=== PATIENT | female | born 1965 | race Caucasian/White ===

== ENCOUNTER → 2017-01-06 | Outpatient (CLI) | payer BC ==
[~2017-01-06] MED LIST: CLARITIN 1010 MG/TAB PO; FLOMAX 0.40.4 MG/CAP PO; MULTIPLE VITAMI1 CAP PO; NORCO 325 MG-51 TAB PO; PYRIDIUM200 M1 PO; ZANTAC 150MG T150 MG PO
== END ==
LOC: MC.RAD 08:56
DX: Z12.31 Encounter for screening mammogram for malignant neoplasm of breast (principal)

== ENCOUNTER → 2018-05-30 | Outpatient (CLI) | payer BC | LOC: MC.RAD 08:38 | DX: Z12.31 Encounter for screening mammogram for malignant neoplasm of breast (principal) ==

== ENCOUNTER → 2018-08-22 | Outpatient (CLI) | payer BC | LOC: COL.RAD 13:27 | DX: N83.202 Unspecified ovarian cyst, left side (principal) ==

== ENCOUNTER → 2019-12-31 | Outpatient (CLI) | payer BC | LOC: MC.RAD 10-22 15:00 | DX: Z12.31 Encounter for screening mammogram for malignant neoplasm of breast (principal) ==

== ENCOUNTER 2020-08-19 08:55 | Day surgery (SDC) | payer BC ==
[2020-08-19] VITALS (10 sets, daily range): BP systolic 95–118; BP diastolic 57–78; PULSE 64–83; TEMP 97.6–98.2
[~2020-08-19] VITALS: Ht 172.7 cm; Wt 84.7 kg
[~2020-08-19 08:55] MED LIST changes: -MULTIPLE VITAMI1 CAP PO; +MULTIPLE VITAMI1 TA5 PO
[2020-08-19] MEDS ORDERED: HCTZ 25MG TAB25 MG PO (09:19)
[2020-08-19] MEDS ORDERED: OMEGA-3 1000 MG1 CAP PO (09:19)
[2020-08-19] MEDS ORDERED: PEPCID AC 10MG10 MG PO (09:21)
[2020-08-19] MEDS ORDERED: COLACE 100100 MG/CAP PO (10:23)
[2020-08-19] MEDS ORDERED: NORCO 325 MG-51 TAB PO (10:24)
--- NOTE | 2020-08-19 12:54 | NUR ---
Patient to room via bed from PACU. Alert and oriented x4. Denies pain at this time, says that she can tell something was done but it is not painful. Does not feel like eating at this time, would prefer to take a nap after she contacts family. Will provide ice water. Oriented to room.
--- NOTE | 2020-08-19 16:38 | NUR ---
Patient sitting up in bed watching TV. Minimal pain at this time. Sellers with clear yellow urine noted in bag. Patient denies needs at this time.
--- NOTE | 2020-08-19 18:17 | NUR ---
Patient sitting up in bed watching TV and eating dinner. Patient says that she is happy since she was able to get food in her stomach. Patient denies needs at this time.
--- NOTE | 2020-08-19 19:26 | NUR ---
RECEIVED CHANGE OF SHIFT REPORT FROM DAY SHIFT NURSE.
[2020-08-20 03:34] VITALS: BP 99/51; PULSE 58; TEMP 98.3
--- NOTE | 2020-08-20 06:55 | NUR ---
Patient lying in bed watching TV. Minimal pain at this time. Low abd incision with edges well approximated, no redness/swelling/discharge noted. Patient denies need to urinate at this time. Explain that each time after she urinates we will need to scan her bladder to make sure that it is emptying appropriately. Patient denies needs at this time.
--- NOTE | 2020-08-20 07:07 | NUR ---
Change of shift report given to day shift nurseLynda.
[2020-08-20 07:54] VITALS: BP 109/59; PULSE 81; TEMP 98.1
--- NOTE | 2020-08-20 08:22 | NUR ---
Patient up to bathroom. Able to void approx 400mL clear yellow urine. Post void residual scan with approx 36mL in bladder. Patient says that she feels good at this time. Review that discharge instructions have been placed and that hopefully we can get her out of the hospital by this afternoon as we will need to do a few of the post void residual scans. Patient verbalizes understanding. Denies needs at this time.
--- NOTE | 2020-08-20 09:54 | NUR ---
Patient up to bathroom. Voids 450mL. Bladder scan performed and approx 40mL noted. Patient says that she feels like she is able to empty her bladder. Will continue to drink water and will call after next void.
--- NOTE | 2020-08-20 10:45 | NUR ---
Initial visit; Patient thanked [employer] for looking in on her, visiting and offering prayer and God's blessings.
--- NOTE | 2020-08-20 12:12 | NUR ---
Patient sitting up in bed watching TV. Requests Tylenol as she is going to start moving around more and the pain in her abd increases with activity. Offered Percocet but patient declines due to it making her "loopy". Will administer Tylenol as prescribed. Patient denies additional needs
[2020-08-20 12:22] VITALS: BP 106/64; PULSE 73; TEMP 98.4
--- NOTE | 2020-08-20 12:45 | NUR ---
Patient up to bathroom, voids 550mL. Bladder scan performed and approx 150mL noted in bladder. Patient says that she has been drinking a lot of water and will go back into the bathroom and we can rescan after. Reviewed all discharge instructions with the patient. Denies questions and signs all discharge documents. Discharge packet provided to the patient. Patient u pto bathroom at this time, will call after to be rescanned.
--- NOTE | 2020-08-20 13:49 | NUR ---
Patient voids 600mL. Post void bladder scan shows approx 13mL in bladder. Explain to the patient that she is able to get dressed at this time. Explain that when her spouse arrives at the ER entrance to use call light and we will assist her out. Patient verbalizes understanding.
--- NOTE | 2020-08-20 14:30 | NUR ---
Patient uses call light and says that her spouse is at ER entrance to pick her up. Patient assisted out to POV via wheelchair with all personal belongings by this nurse and PAOLA Bagley.
== END 2020-08-20 14:30 | disposition home or self-care (01) ==
LOC: SDCO 08:55 → SURG 12:45 → SDCO 08-20 14:30
DX: N36.42 Intrinsic sphincter deficiency (ISD) (principal); N39.3 Stress incontinence (female) (male); J45.909 Unspecified asthma, uncomplicated; E78.5 Hyperlipidemia, unspecified; K21.9 Gastro-esophageal reflux disease without esophagitis; Z20.828 Contact with and (suspected) exposure to other viral communicable diseases; Z87.891 Personal history of nicotine dependence; Z91.040 Latex allergy status; Z79.899 Other long term (current) drug therapy
CPT/HCPCS: OP; A4314; C1762; J0690; J1100; J2405; J2704; J3010; J7120

== ENCOUNTER → 2021-07-03 | Outpatient (CLI) | payer BC ==
[~2021-07-03] MED LIST changes: +COLACE 100100 MG/CAP PO; +HCTZ 25MG TAB25 MG PO; +OMEGA-3 1000 MG1 CAP PO; +PEPCID AC 10MG10 MG PO
== END ==
LOC: COL.RAD 08:01
DX: R10.31 Right lower quadrant pain (principal)
CPT/HCPCS: Q9967

== ENCOUNTER → 2022-06-01 | Outpatient (CLI) | payer BC | LOC: MC.RAD 10:58 | DX: Z12.31 Encounter for screening mammogram for malignant neoplasm of breast (principal) ==

== ENCOUNTER → 2024-06-29 | Outpatient (CLI) | payer BC | LOC: MC.RAD 07:42 | DX: Z12.31 Encounter for screening mammogram for malignant neoplasm of breast (principal) ==